=== PATIENT | male | born 1975 | race Caucasian/White ===

== ENCOUNTER 2024-01-11 20:47 | Outpatient (OUT) | payer OTHER, SELFPAY | END 2024-01-11 20:48 | disposition home or self-care (01) | LOC: SLEEP 20:48 | PROVIDERS: PCP Family Medicine; Visit Provider Family Medicine | DX: G47.33 Obstructive sleep apnea (adult) (pediatric) (principal) | CPT/HCPCS: 95810 ==

== ENCOUNTER 2024-03-02 20:48 | Outpatient (OUT) | payer OTHER, SELFPAY ==
--- OUTSIDE RECORDS SUMMARY | 2024-03-02 20:52 | XMS_ITS | CCD ---
Author Organization [facility] Care Team Providers Care Helicopter Specialist Name Role Phone Danae Chairez Primary Care Unavailable Danae Chairez Attending Unavailable Results Test Name Value Interpretation Reference Range Facil ity PSA Screen (Yearly Only)on 0 12-27-2018 PSA Screen (Yearly Only) 0.550 ng/mL Normal 0.000-4.000 [facility] Comment on above: Order Comment: Reaso n for Exam Enlarged prostate Result Comment: PERF ORMED BY: [place] [address] PATHOLOGIST NEW ORDER CLERK KWAME GARLAND M.D. Performed By: #### P SAS, CUU, UA #### [facility] [address] Urinalysison 12-27-2018 Appearance Nom (U) Clear Normal Clear [facility] Comment on above: Order Comment: Reaso n for Exam Enlarged prostate Name Collection Type: Voided Performed By: #### P SAS, CUU, UA #### [facility] [address] Bilirubin,Urine Negative Normal Negative [facility] Comment on above: Order Comment: Reaso n for Exam Enlarged prostate Name Collection Type: Voided Performed By: #### P SAS, CUU, UA #### [facility] [address] [place] [address] [place] Color Nom (U) Yellow Normal Yellow [facility] Comment on above: Order Comment: Reaso n for Exam Enlarged prostate Name Collection Type: Voided Performed By: #### P SAS, CUU, UA #### [facility] [address] [place] [address] [place] Glucose Ql (U) Normal Normal Normal [facility] Comment on above: Order Comment: Reaso n for Exam Enlarged prostate Name Collection Type: Voided Performed By: #### P SAS, CUU, UA #### [facility] [address] [place] [address] Ketones Ql (U) Negative Normal Negative [facility] Comment on above: Order Comment: Reaso n for Exam Enlarged prostate Name Collection Type: Voided Performed By: #### P SAS, CUU, UA #### [facility] [address] [place] [address] Leukocyte esterase Test strip Ql (U) Negative Normal Negative [facility] Comment on above: Order Comment: Reaso n for Exam Enlarged prostate Name Collection Type: Voided Performed By: #### P SAS, CUU, UA #### [address] Nitrite,Urine Negative Normal Negative [facility] Comment on above: Order Comment: Reaso n for Exam Enlarged prostate Name Collection Type: Voided Performed By: #### P SAS, CUU, UA #### [address] Occult Blood,Urine Negative Normal Negative [facility] Comment on above: Order Comment: Reaso n for Exam Enlarged prostate Name Collection Type: Voided Result Comment: PERF ORMED BY: [place] [address] PATHOLOGIST NEW ORDER CLERK KWAME GARLAND M.D. Performed By: #### P SAS, CUU, UA #### [address] pH (U) 5.5 [pH] Normal 5.0-9.0 [facility] Comment on above: Order Comment: Reaso n for Exam Enlarged prostate Name Collection Type: Voided Performed By: #### P SAS, CUU, UA #### [place] [address] [place] Protein mass conc (U) Negative Normal Negative [facility] Comment on above: Order Comment: Reaso n for Exam Enlarged prostate Name Collection Type: Voided Performed By: #### P SAS, CUU, UA #### [place] [address] [place] Specificy [place],Urine 1.017 Normal 1.001-1.030 [facility] Comment on above: Order Comment: Reaso n for Exam Enlarged prostate Name Collection Type: Voided Performed By: #### P SAS, CUU, UA #### [facility] [address] [place] [id number] [facility] Urobilinogen,Urine Normal Normal Normal [facility] Comment on above: Order Comment: Reaso n for Exam Enlarged prostate Name Collection Type: Voided Performed By: #### P SAS, CUU, UA #### [facility] [address] Urine Cultureon 12-27-2018 Bacteria identified Cx Nom (U) Reason for Exam Enlarged prostate Urine <9,000 colonies/ml mixed bacterial skin contaminants 2 Days PERFORMED BY: [place] [address] PATHOLOGIST NEW ORDER CLERK KWAME GARLAND M.D. [facility] Comment on above: Performed By: #### P SAS, CUU, UA #### [facility] [address] [place] [id number] [facility] Encounters Encounter Date Encounter Type Care Provider Facility Start: 12-27-2018 End: 12-27-2018 Patient encounter procedure Danae Chairez Facility:[facility] Payers Date Payer Category Payer Private Health Insurance [id number] 2018 Self-pay Unknown [id number] Summary Purpose Family History No Family History Records Found Advance Directives No Advanced Directives Records Found Additional Source Comments (unrecognized sect ion and content) No Status Records Found INFORMATION SOURCE (unrecogn ized section and content) DATE CREATED AUTHOR 12/30/[address] [facility] FOR RECORDS PERTAINING TO PATIENTS WHO ARE OR HAVE BEEN ENROLLED IN A CHEMICAL DEPENDENCY/SUBSTANCEABUSE PROGRAM, SOME INFORMATION MAY BE OMITTED. This clinical summary was aggregated from multiple sources. Caution should be exercised in using it in the provision of clinical care. This summary normalizes information from multiple sources, and as a consequence, information in this document may materially change the coding, format and clinical context of patient data. In addition, data may be omitted in some cases. CLINICAL DECISIONS SHOULD BE BASED ON THE PRIMARY CLINICAL RECORDS. [facility] [employer] [facility]. provides no warranty or guarantee of the accuracy or completeness of information in this document.
== END 2024-03-02 20:49 | disposition home or self-care (01) ==
LOC: SLEEP 20:48
PROVIDERS: PCP Family Medicine; Visit Provider Family Medicine
DX: G47.33 Obstructive sleep apnea (adult) (pediatric) (principal)
CPT/HCPCS: 95811